=== PATIENT | female | born 1940 | race Caucasian/White ===

== ENCOUNTER → 2016-06-25 | Outpatient (CLI) | payer MEDICARE, OTHER ==
--- NOTE | 2016-06-25 14:58 | MRI ---
EXAM DESCRIPTION: Cervical Spine CLINICAL HISTORY: CERVICAL RADICULOPATHY COMPARISON: X-rays June 19, 2016 TECHNIQUE: Multiplanar MRI of the cervical spine was performed without contrast. FINDINGS: Cervical vertebral bodies show normal height without compression deformity. There is 3 mm anterior displacement of C4 on C5. Mild curvature of the lower cervical to upper thoracic spine with convexity towards the left is seen. Craniocervical junction is maintained. Patchy areas of increased T2 signal in the rainer could represent old small vessel ischemic type changes. No abnormal signal is seen in the spinal cord. C1-2 and craniocervical junction Small amount of fluid between the anterior arch of C1 and the odontoid is noted. C2-3 Mild bilateral facet hypertrophic and degenerative changes are seen. There is mild bilateral foraminal encroachment. C3-4 Disc desiccation and mild posterior disc space narrowing is seen with mild posterior ligamentum flavum thickening. There is mild spinal canal stenosis. Thecal sac measures 7 mm AP centrally. Moderate left and mild right facet hypertrophic and degenerative changes are seen with mild to moderate bilateral foraminal encroachment. There is a posterior facet joint synovial cyst measuring 6 x 11 mm C4-5 Mild disc desiccation without loss of disc space height. Moderate left and mild right facet hypertrophic and degenerative changes are seen. Mild spinal canal stenosis is seen. There is mild to moderate bilateral foraminal encroachment. C5-6 Disc desiccation and moderate diffuse disc space narrowing is seen. Mild to millimeter ventral ridging disc osteophyte complex and posterior ligamentum flavum thickening contributes to moderate spinal canal stenosis. The thecal sac measures 6 mm AP centrally. Left uncovertebral joint hypertrophy contributes to moderate left foraminal encroachment. C6-7 Disc desiccation and mild loss of disc space height. There is posterior ligamentum flavum thickening contributing to mild spinal canal stenosis. The thecal sac measures 8 mm AP centrally. No significant foraminal encroachment. There is mild bilateral facet hypertrophy. C7-T1 No significant findings. IMPRESSION: Multilevel mild to moderate disc degenerative changes and facet arthropathy of the cervical spine is seen. Multifactorial moderate spinal canal stenosis seen at C5-6 with mild spinal canal stenosis C3-C5 and C6-7. Multilevel foraminal encroachment is seen as described level by level above most significant on the left at C5-6. Mild degenerative anterolisthesis of C4 on C5 is seen. Electronically signed by: Nils Jerez MD 06/25/2016 2:57 PM CDT
--- NOTE | 2016-06-25 15:58 | MRI ---
EXAM DESCRIPTION: Brain w/wo Contrast CLINICAL HISTORY: DIZZINESS COMPARISON: December 21, 2011 TECHNIQUE: Multiplanar, multi sequence MR images of the head are obtained with and without IV gadolinium contrast using standard imaging protocol. FINDINGS: The midline structures are not displaced. Sulci are age appropriate. The lateral, third, and fourth ventricles are normal in size, shape, and anatomic positioning. Normal arguello-white differentiation is seen. Normal flow voids are seen in the major intracranial vessels including the dural venous sinuses. There is no evidence of mass, mass effect, hydrocephalus, or acute intracranial hemorrhage. No abnormal extra-axial fluid collections are seen. No abnormal areas of enhancement are seen. Moderate scattered foci of increased FLAIR/T2 signal are seen in the periventricular white matter, white matter and centrum semiovale, and the rainer. This has an overall similar appearance to previous exam. Gradient echo images show no abnormal signal. The pituitary is unremarkable. Visualized paranasal sinuses are unremarkable. The visualized orbits and mastoid air cells are unremarkable. IMPRESSION: Age-appropriate atrophy with mild old small vessel ischemic type changes are stable from previous exam. No MRI evidence of acute intracranial ischemia, mass, or abnormal enhancement. Electronically signed by: Nils Jerez MD 06/25/2016 3:56 PM CDT
== END | disposition home or self-care (01) ==
LOC: MRI 09:07
PROVIDERS: ATTEND Family Medicine
DX: H81.10 Benign paroxysmal vertigo, unspecified ear (principal); M54.12 Radiculopathy, cervical region

== ENCOUNTER → 2016-07-04 | Outpatient (CLI) | payer MEDICARE, OTHER | END | disposition home or self-care (01) | LOC: GMA 14:06 | PROVIDERS: ATTEND Nurse Practitioner Family | DX: N30.00 Acute cystitis without hematuria (principal) ==

== ENCOUNTER → 2016-07-18 | Outpatient (CLI) | payer MEDICARE, OTHER | END | disposition home or self-care (01) | LOC: GMAM 14:16 | PROVIDERS: ATTEND Family Medicine | DX: R53.83 Other fatigue (principal); E55.9 Vitamin D deficiency, unspecified ==

== ENCOUNTER → 2016-08-15 | Outpatient (CLI) | payer MEDICARE, OTHER | END | disposition home or self-care (01) | LOC: GMA 14:20 | PROVIDERS: ATTEND Nurse Practitioner Family | DX: N30.00 Acute cystitis without hematuria (principal) ==

== ENCOUNTER → 2017-01-04 | Outpatient (CLI) | payer MEDICARE, OTHER | END | disposition home or self-care (01) | LOC: GMAM 10:17 | PROVIDERS: ATTEND Family Medicine | DX: E55.9 Vitamin D deficiency, unspecified (principal) ==

== ENCOUNTER → 2017-01-15 | Outpatient (CLI) | payer MEDICARE, OTHER ==
--- NOTE | 2017-01-15 11:14 | CT ---
EXAM DESCRIPTION: Chest w/Contrast (accession [id number]), Chest w/o Contrast (accession [id number]) CLINICAL HISTORY: ABNORMAL CXR FINDINGS COMPARISON: Chest x-ray January 04, 2017 TECHNIQUE: Pre and postcontrast CT images of the chest are obtained. This exam was performed according to our departmental dose-optimization program, which includes automated exposure control, adjustment of the mA and/or kV according to patient size and/or use of iterative reconstruction technique . FINDINGS: The heart is mildly enlarged. Moderate coronary artery calcifications are seen. There is borderline aneurysmal dilatation of the ascending thoracic aorta measuring 4 cm without evidence of dissection. Scattered calcified and noncalcified plaque throughout the thoracic aorta and great vessels are seen. No pathologic lymphadenopathy. No pleural or pericardial effusion. Several fluid attenuation cysts are seen in the liver including 1.8 cm the left lobe superiorly. There is a 8 mm area of enhancement in the mid right lobe of the liver adjacent to an ill-defined area of decreased attenuation measuring 12 mm. There is probable cortical thinning of the kidneys partly visualized. Lungs are mildly hyperinflated. There are mild centrilobular emphysematous changes seen. Somewhat cavitary appearing nodule with thick wilkinson and central airspace attenuation measures 1.6 x 1.2 cm in the anterior aspect of the mid to upper aspect of the right lower lobe. There is nodular interstitial thickening extending to the anterior oblique fissure. Inferior to this are noncalcified pulmonary nodules measuring up to 11 and 6 mm greatest diameter. These nodules do not show obvious enhancement on postcontrast images. No other pulmonary nodules are seen. Osseous structures show no aggressive bony lesions. Mild disc degenerative changes of the spine are seen. IMPRESSION: In the area of abnormality seen on chest x-ray, there are areas of interstitial thickening and pulmonary nodules in the anterior mid aspect of the right lower lobe extending to the oblique fissure. One of these areas of nodularity suggest some central cavitation which could indicate infectious or inflammatory etiology versus neoplastic process. The more inferior noncavitary nodules measure up to 11 mm greatest diameter. Consider further evaluation with PET/CT imaging or tissue sampling with biopsy of these lesions. Mild centrilobular emphysematous changes to the lungs are seen. No pathologic lymphadenopathy. Mild aneurysmal dilatation of the ascending thoracic aorta. Recommend yearly follow-up imaging. Several hepatic cysts are identified. There is a partly visualized area of enhancement in the mid to inferior right lobe of the liver adjacent to the area of low attenuation. This could represent early phase hemangioma versus other enhancing hepatic lesion. Consider further evaluation with pre and postcontrast CT of the abdomen using hemangioma imaging protocol. Electronically signed by: Nils Jerez MD 01/15/2017 11:12 AM [facility]
== END | disposition home or self-care (01) ==
LOC: CT 09:44
PROVIDERS: ATTEND Family Medicine
DX: N30.00 Acute cystitis without hematuria (principal); I25.10 Atherosclerotic heart disease of native coronary artery without angina pectoris; I51.7 Cardiomegaly

== ENCOUNTER → 2017-02-04 | Outpatient (CLI) | payer MEDICARE, OTHER ==
--- NOTE | 2017-02-05 08:00 | US ---
EXAM DESCRIPTION: Liver CLINICAL HISTORY: 76 years, Female, LIVER MASS COMPARISON: CT scan chest January 15. FINDINGS: Gallbladder does not demonstrate stones or wall thickening. Common bile duct 3 mm. Intrahepatic ducts not dilated. Liver 14.6 cm. Homogeneous normal echotexture. Multiple benign-appearing cysts bilaterally. On the left lobe simple cyst 1.4 x 1.4 x 7.3 cm 1.315 x 1.1 cm. This also probable benign cyst measuring 1.5 x 1.8 x 1.0 cm. This has some central septation Right lobe simple cyst 2.8 x 2.8 x 2.4 cm. A smooth echogenic mass, anterior right lobe, without vascularity measuring 1.2 x 1.1 x 1.2 cm could be the indeterminate lesion described on recent CT scan. The sonographic features are suggestive but not conclusive for diagnosis of benign trauma. Right kidney 7.7 cm without hydronephrosis. IMPRESSION: Numerous almost certainly benign hepatic cysts present similar to suggested by recent CT. Indeterminate hepatic mass on the CT may correspond to a small hyperechoic right hepatic mass which has sonographic features very suggestive of hemangioma. More accurate characterization can be obtained with CT scanning. Alternatively short-term follow-ups sonogram can also be considered to confirm stability Electronically signed by: Brennon Clay MD 02/05/2017 7:59 AM [facility]
== END | disposition home or self-care (01) ==
LOC: US 11:20
PROVIDERS: ATTEND Internal Medicine Pulmonary Disease
DX: D37.6 Neoplasm of uncertain behavior of liver, gallbladder and bile ducts (principal); R91.1 Solitary pulmonary nodule; R91.8 Other nonspecific abnormal finding of lung field; J98.4 Other disorders of lung; Z72.0 Tobacco use; J44.9 Chronic obstructive pulmonary disease, unspecified

== ENCOUNTER → 2017-02-12 | Outpatient (CLI) | payer MEDICARE, OTHER ==
--- NOTE | 2017-02-12 21:14 | CT ---
EXAM DESCRIPTION: Chest w/o Contrast CT. CLINICAL HISTORY: NODULE COMPARISON: CT scan of the chest without and with IV contrast 01/15/2017. TECHNIQUE: Spiral-axial scans at 5.0 mm intervals through the lungs and thorax without IV contrast. 2.5 mm lung algorithm axial reconstructions. Coronal and sagittal 2.0 Mm reconstructions. Total Exam DLP: 223.32 mGy-cm. This exam was performed according to our departmental dose-optimization program which includes automated exposure control, adjustment of the mA and/or kV according to patient size and/or use of iterative reconstruction technique; to reduce radiation dose to as low as reasonably achievable (ALARA). FINDINGS: Again noted is a region of architectural distortion with the elongated nodules scarring in the dilated airspaces in the anterior lateral aspect of the right lower lobe abutting the inferior right major fissure (series 4, images 77-89).. There may also be chronically dilated airways associated with this tissue. Again noted on the anterior inferior aspect of this tissue is a slightly lobulated nodule measuring 6 mm (image 83.) Posteriorly at a slightly higher level is an 11 mm nodule 2 cm from the pleura. Bilateral small dilated airspaces in the lung parenchyma more prevalent upper lung kingsley than lower. Pleural thickening in the base of the lingula and the right middle lobe. No abnormal nodules elsewhere in the lungs bilaterally. No pleural effusion or pneumothorax. Atherosclerotic calcifications in the proximal brachiocephalic vessels and thoracic aorta. Coronary artery atherosclerotic calcifications and stents. No dominant soft tissue masses or lymph nodes in the base of the neck, axillary regions, mediastinum or hilum. Evaluation is limited due to lack of IV contrast. Multiple cysts in the left lobe of the liver. Normal density of the bilateral adrenal glands and included spleen. No subdiaphragmatic fluid or free air in the included peritoneal space. Spondylosis in the included thoracic spine. No bone destruction. IMPRESSION: 1. Stable complex area of scarring, dilated airspaces, dilated branch airways and possibly small cavities in the anterior right lower lobe, since CT scan in December. A 6 mm and 11 mm nodule are abutting this tissue and are also unchanged. Consider CT scan in 3 month, PET/CT scan, or tissue sampling. Stable emphysematous changes in the remainder of the lung. Electronically signed by: Nikhil Banegas MD 02/12/2017 9:13 PM [facility] Workstation: [id number]
== END | disposition home or self-care (01) ==
LOC: CT 09:14
PROVIDERS: ATTEND Family Medicine
DX: D72.829 Elevated white blood cell count, unspecified (principal)

== ENCOUNTER → 2017-06-26 | Outpatient (CLI) | payer MEDICARE, OTHER ==
--- NOTE | 2017-06-27 11:52 | CT ---
EXAM DESCRIPTION: Chest w/o Contrast : Computed Tomography. CLINICAL HISTORY: PULMONARY NODULE COMPARISON: Chest CT scan without contrast 02/12/2017. TECHNIQUE: Spiral-axial scans at 5.0 mm intervals through the lungs and thorax without IV contrast. 2.5 mm lung algorithm axial reconstructions. Coronal and sagittal 2.0 Mm reconstructions. No adverse reactions. Total Exam DLP: 238.96 mGy-cm. This exam was performed according to our departmental dose-optimization program which includes automated exposure control, adjustment of the mA and/or kV according to patient size and/or use of iterative reconstruction technique; to reduce radiation dose to as low as reasonably achievable (ALARA). FINDINGS: The nodules apical pleural thickening bilaterally. Small bilateral emphysematous blebs in the parenchyma again noted more numerous in the upper lung kingsley compared to the lower lung kingsley. Linear radiodense material is associated with this density tissue coursing from the lateral pleura abutting the right middle lobe in a superior direction and following the major fissure into its lateral insertion abutting the superior segment right lower lobe. No new nodules or densities in the left lung. No new infiltrates bilaterally. No pleural effusion or pneumothorax. Evaluation of the soft tissues limited due to lack of IV contrast. No new soft tissue masses in the bilateral elsa mediastinum or axilla. Thyroid gland unremarkable. Stable atherosclerotic calcifications in the great vessels and coronary artery calcifications and/or stents. Stable cystlike masses in the included lateral segment of the left upper lobe with no free fluid in the included subcutaneous diaphragmatic peritoneal space. Abutting the inferior lateral right major fissure on the prior study are less evident with larger more inferior scar type triangular configuration of density in the anterior lateral right lower lobe abutting the fissure. Linear density interpreted to represent scarring also extends more superiorly along the lateral aspect of the fissure compared to the prior study. Stable appearance of the spine and other osseous structures since the prior study. IMPRESSION: 1. Nodules seen on the prior study in the right lower lobe abutting the lateral right major fissure are no longer present, but increased parenchymal thickening most likely scarring is abutting the major fissure and associated with elongated radiodense material which is interpreted to represent calcification. Please correlate with clinical findings. No new nodules or masses. Consider follow-up chest CT scan in 6 - 12 month interval to document stability. Stable centrilobular emphysematous changes in the lungs bilaterally. 2. Stable cysts in the lateral segment left hepatic lobe. Electronically signed by: Nikhil Banegas MD 06/27/2017 11:51 AM CDT
== END ==
LOC: CT 11:14
PROVIDERS: ATTEND Thoracic Surgery (Cardiothoracic Vascular Surgery)
DX: R91.1 Solitary pulmonary nodule (principal); Q44.6 Cystic disease of liver

== ENCOUNTER → 2017-07-05 | Outpatient (CLI) | payer MEDICARE, OTHER | LOC: GMAM 13:52 | PROVIDERS: ATTEND Family Medicine | DX: E55.9 Vitamin D deficiency, unspecified (principal) ==

== ENCOUNTER → 2017-11-06 | Outpatient (CLI) | payer MEDICARE, OTHER ==
--- NOTE | 2017-11-06 10:32 | CT ---
EXAM DESCRIPTION: Chest w/o Contrast CLINICAL HISTORY: LUNG CANCER COMPARISON: June 26, 2017 TECHNIQUE: Chest CT was performed without IV contrast. This exam was performed according to our departmental dose-optimization program, which includes automated exposure control, adjustment of the mA and/or kV according to patient size and/or use of iterative reconstruction technique. FINDINGS: The thyroid and thoracic inlet are unremarkable. Mural calcifications in the thoracic aorta with upper normal caliber of the ascending thoracic aorta measuring up to 3.7 cm diameter, stable. Coronary artery calcifications are noted. The main pulmonary artery is not dilated. Limited sensitivity for detection of adenopathy due to lack of IV contrast. Nonenlarged mediastinal lymph nodes are noted, but no mediastinal or hilar adenopathy is seen. No pleural or pericardial effusion. There is some intermediate density material in the left mainstem bronchus which probably represents bronchial secretions. A small nodular lesion adjacent to the anterior tracheal wall just proximal to the shaniqua probably represents additional tracheal secretions. Emphysematous changes are noted. Platelike atelectasis or scarring is noted in the right lower lobe, stable. No airspace consolidation, lung mass or suspicious lung nodule is identified. There are several small round low-density lesions in the left hepatic lobe which are stable from the prior exam and likely represent cysts. There are additional rounded low-density lesions in the right hepatic lobe, the largest measuring at least 3.3 cm diameter but only partially included on the exam, which have increased in size from the prior exam and are concerning for metastatic disease. A 1.47 m soft tissue density nodule just deep to the skin surface in the anterior abdominal wall overlying the right upper quadrant is stable from the prior exam. No lytic or sclerotic bone lesion is identified. IMPRESSION: Postoperative changes in the right lung, but no evidence of recurrent intrathoracic neoplasm. Several round low density lesions in the right hepatic lobe, increased in size from Jun, 2017 and highly suspicious for metastatic disease. Additional low-density lesions in the left hepatic lobe are stable and likely represent cysts. 1.5 cm lesion in the subcutaneous soft tissues in the anterior abdominal wall as detailed above, stable. This is nonspecific, please correlate with physical exam. Electronically signed by: Dexter Garcia MD 11/06/2017 10:31 AM CDT
== END ==
LOC: CT 09:09
PROVIDERS: ATTEND Family Medicine
DX: C34.90 Malignant neoplasm of unspecified part of unspecified bronchus or lung (principal); K76.9 Liver disease, unspecified; Z98.890 Other specified postprocedural states

== ENCOUNTER → 2017-11-13 | Outpatient (CLI) | payer MEDICARE, OTHER | LOC: GMAM 14:24 | PROVIDERS: ATTEND Family Medicine | DX: R30.0 Dysuria (principal) ==

== ENCOUNTER → 2017-11-14 | Outpatient (CLI) | payer MEDICARE, OTHER ==
--- NOTE | 2017-11-14 17:34 | US ---
EXAM DESCRIPTION: Liver: ULTRASOUND. CLINICAL HISTORY: ABNORMAL FINDING ON RAD AND OTHER EXAMS OF BILIARY TRACT. Masses in the liver. COMPARISON: CT scan of the chest without contrast 11/06/2017. TECHNIQUE: Transabdominal scannin-dimensional and Doppler modes. FINDINGS: Gallbladder: normal size, shape, echogenicity; no intraluminal stones or sludge. No fluid around the gallbladder. No wall thickening. 1.6 mm. Non-tender with transducer pressure. Common bile duct: caliber 2.8 mm within normal limits. Liver: normal echogenicity; multiple complex partially cystic lesions are seen in the liver. One subcapsular lesion in the left lobe measures 2.1 x 1.4 cm. Larger mostly cystic lesion with peripheral nodules measures 3.6 x 3.4 cm. Also smaller hypoechoic nodules in both lobes. Contour liver capsule smooth where seen. No fluid around the liver. Intrahepatic biliary ducts normal caliber. Doppler hepatopedal flow portal vein. Caliber 9.6 mm. Long axis right lobe 15.4 cm. Pancreas: normal size and echogenicity. Duct not seen. Right kidney: long axis measures 9.1 cm. Increased cortical Echogenicity. Minimal cortical thinning. 12 mm. No hydronephrosis IMPRESSION: 1. Partially cystic lesions and hypoechoic lesions in the liver both lobes could represent metastatic disease. Normal vascularity and normal ducts in the liver. No ascites. Consider follow-up triple phase noncontrast and contrast hepatic CT scan and/or MRI scan of the liver without and with gadolinium IV contrast. 2. Normal ultrasound of the gallbladder and normal caliber of the common bile duct. Pancreas is unremarkable. 3. Age-related changes in the right kidney with no hydronephrosis. Electronically signed by: Nikhil Banegas MD 11/14/2017 5:32 PM CDT
== END ==
LOC: US 09:30
PROVIDERS: ATTEND Family Medicine
DX: R93.2 Abnormal findings on diagnostic imaging of liver and biliary tract (principal)

== ENCOUNTER → 2018-02-11 | Outpatient (CLI) | payer MEDICARE, OTHER ==
--- NOTE | 2018-02-11 14:16 | CT ---
EXAM DESCRIPTION: Chest w/o Contrast : Computed Tomography. CLINICAL HISTORY: 77 years Female LUNG NODULE. Lung cancer. COMPARISON: CT scan chest without IV contrast 11/06/2017. TECHNIQUE: Spiral-axial scans at 5 x 5 mm intervals through the lungs and thorax without IV contrast. 2.5 x 5 mm lung algorithm axial reconstructions. 2.0 x 2.0 Mm reconstructions. Total Exam DLP: 206.64 mGy-cm. This exam was performed according to our departmental dose-optimization program which includes automated exposure control, adjustment of the mA and/or kV according to patient size and/or use of iterative reconstruction technique; to reduce radiation dose to as low as reasonably achievable (ALARA). Nodule measurements under 10 mm are given as mean value of 3 axes diameters. FINDINGS: Lungs and large airways: A new density with central air and partially groundglass and partially solid central components is seen in the central right apex with extension to anterior lateral and posterior pleura on lung axial series 4, image 17-21. Minimal thickening of the lateral right horizontal and right major fissure laterally is again noted. Associated with parenchymal scarring laterally and in the lateral right lower lobe posterior recess. No change in appearance. Stable bilateral parenchymal blebs more numerous in the upper lung kingsley. Pleural parenchymal scarring in the inferior lingula. 6 mm groundglass nodule superior segment left lower lobe new since the prior study on image 66. 3 mm partially solid nodule left upper lobe laterally on image 50 not well seen on the prior study.. Pleural spaces: No effusion bilaterally. Multiple regions of focal thickening stable. No pleural effusion bilaterally or pneumothorax. Mediastinum and [place]: Evaluation limited due to lack of IV contrast multiple small lymph nodes are stable. No new soft tissue masses. Great vessels and Heart: Evaluation limited due to lack of IV contrast. Atherosclerotic calcification aortic arch and descending thoracic aorta. Coronary artery calcifications. Soft tissues of neck base, axillae, and chest wall: Evaluation limited due to lack of IV contrast.. Subcutaneous nodule with acute angles to the scan overlying anterior right liver at the level of the lung base. Stable. Upper abdomen: No free air or fluid in the included peritoneal space. Included adrenal glands and spleen normal size and density. Multiple hepatic lesions, predominantly in the left lobe. Moderate atherosclerotic calcification of the abdominal aorta. Osseous structures: Minimal spondylosis in the thoracic spine. Arthrosis bilateral sternoclavicular joints and left glenohumeral joint. Minimal scoliosis upper thoracic spine. IMPRESSION: 1. New density containing air, groundglass, and partially solid with extensions to the pleura in the right apex. Solid component is approximately 5 mm. Associated with pleural thickening and other pleural changes in the right upper lobe. Scarring changes in the superior segment right lower lobe and the right middle lobe medial segment are stable. New 6 mm groundglass nodule superior segment left upper lobe. 3 mm partially solid nodule with minimal spiculation in the left upper lobe new since the prior study. Recommend six-month follow-up according to [facility] Best Practice recommendations and 2017 Fleischner Society guidelines for imaging follow-up of multiple nodules. Please see below*. 2. Multifocal hepatic lesions, some soft tissue density in some cystic/fluid density, with no significant change since the prior study. * 2017 Fleischner Society Recommendations for Multiple Solid Lung Nodules Follow-Up base on size (average of long- and short-axis diameters). Use most suspicious nodule for followup. Nodule Size <6 mm Low-Risk Patient: No routine follow-up Nodule Size <6 mm High-Risk Patient: Optional CT at 12 months Nodule Size 6-8 mm Low-Risk Patient: CT at 3-[address] at 18-24 months Nodule Size 6-8 mm High-Risk Patient: CT at 3-6 months then at 18-24 months. Electronically signed by: Nikhil Banegas MD 02/11/2018 2:15 PM [facility]
== END ==
LOC: CT 10:00
PROVIDERS: ATTEND Family Medicine
DX: C34.90 Malignant neoplasm of unspecified part of unspecified bronchus or lung (principal); R91.1 Solitary pulmonary nodule; E55.9 Vitamin D deficiency, unspecified; K76.9 Liver disease, unspecified

== ENCOUNTER → 2018-07-28 | Outpatient (CLI) | payer MEDICARE, OTHER ==
--- NOTE | 2018-07-29 09:48 | CT ---
EXAM DESCRIPTION: Chest w/o Contrast : Computed Tomography. CLINICAL HISTORY: 78 years Female LUNG CANCER COMPARISON: CT scan of the chest without contrast 11/12/2017. TECHNIQUE: Spiral-axial scans at 5 mm intervals through the lungs and thorax without IV contrast. 2.5 x 5 mm lung algorithm axial reconstructions. Coronal and sagittal 2.0 Mm reconstructions. Total Exam DLP: 248.93 mGy-cm. This exam was performed according to our departmental dose-optimization program which includes automated exposure control, adjustment of the mA and/or kV according to patient size and/or use of iterative reconstruction technique; to reduce radiation dose to as low as reasonably achievable (ALARA). Nodule measurements under 10 mm are given as mean value of 3 axes diameters. FINDINGS: Lungs and large airways: The groundglass nodule seen in the superior and posterior left lower lobe on the prior study is no longer visualized. Spiculated density in the right apex on the prior study is less solid with more groundglass and air density on the current study. Posterior thickening of the pleura at this level and contralateral left lung is stable subpleural density in the superior lateral lingula seen on the prior study is no longer present. Pleural and parenchymal scarring associated with the lateral right major fissure and lateral horizontal fissure is unchanged. Bilateral parenchymal blebs mostly in the upper lung kings[place] in a centrilobular distribution stable. Stable parenchymal pleural scarring in the inferior middle lobe and in the right lower lobe. No new nodules or masses. No focal infiltrate. Pleural spaces: Bilateral scattered focal thickening and scarring is noted. No effusion or pneumothorax. Mediastinum and [place]: Evaluation limited due to lack of IV contrast. No enlarged nodes are soft tissue masses. Great vessels and Heart: Evaluation limited due to lack of IV contrast. Coronary artery calcifications and stents, atherosclerotic calcifications in the aorta and previous cephalic vessels also again seen. Soft tissues of neck base, axillae, and chest wall: Evaluation limited due to lack of IV contrast.. No enlarged lymph nodes or soft tissue masses. Thyroid unremarkable. Upper abdomen: Included peritoneal space is negative. Normal density and size of included spleen and adrenal glands and other organs. Stable cysts in the lateral segment left hepatic lobe. Inferior right hepatic cyst was not imaged on the prior study. No free fluid or free air.. Osseous structures: Anterior endplate ridging at some levels of the thoracic spine with some with some endplates demonstrating Schmorl's nodes. Mild levoscoliosis. Arthrosis bilateral sternoclavicular joints. No lytic or blastic lesions. IMPRESSION: 1. Bilateral pleural-parenchymal scarring in the lungs particularly in the lateral aspect of the superior segment of the right lower lobe and inferior right middle lobe. This may have been location of previous malignancy. Nodular densities seen on the prior study are no longer visualized. No new nodules or masses. No focal infiltrate. 2. Consider optional follow-up chest CT scan in 12 month interval, according to 2017 Fleischner Society guidelines for imaging follow-up of nodules. Electronically signed by: Nikhil Banegas MD 07/29/2018 9:45 AM CDT
== END ==
LOC: CT 13:30
PROVIDERS: ATTEND Thoracic Surgery (Cardiothoracic Vascular Surgery)
DX: C34.90 Malignant neoplasm of unspecified part of unspecified bronchus or lung (principal); R91.8 Other nonspecific abnormal finding of lung field

== ENCOUNTER → 2019-02-23 | Outpatient (CLI) | payer MEDICARE, OTHER ==
--- NOTE | 2019-02-23 16:30 | CT ---
EXAM DESCRIPTION: Chest w/o Contrast CLINICAL HISTORY: 78 years Female, LUNG CANCER FOLLOW UP COMPARISON: CT chest dated July 28, 2018 and February 11, 2018. TECHNIQUE: Contiguous thin section axial images were obtained from the supraclavicular region to below the diaphragm level without the use of intravenous contrast. Sagittal and coronal reconstructions were reviewed. This exam was performed according to our departmental dose-optimization program, which includes automated exposure control, adjustment of the mA and/or kV according to patient size and/or use of iterative reconstruction technique. FINDINGS: The visualized thyroid gland appears grossly unremarkable. No enlarged axillary, supraclavicular, mediastinal or hilar lymphadenopathy. The previously noted mildly prominent mediastinal lymph nodes appears stable from prior exam, the reference vascular node measuring up to 5 mm. The heart size appears within normal limits.Evaluation of the great vessels is limited secondary to lack of intravenous contrast. Moderate atherosclerotic calcific lesions of the aortic arch and moderate coronary artery calcifications noted. No pericardial effusion. The tracheobronchial tree is patent. Review of the lung windows demonstrate no acute consolidation or pleural effusion. The previously noted mildly spiculated groundglass density in the right apex appears stable with no significant interval change. The posterior thickening of the pleura at this level and contralateral left lung also appear stable. Again noted is stable appearing pleural and parenchymal scarring associated with the lateral right major fissure and lateral horizontal fissure with no significant interval change. No other new suspicious nodules or abnormal mass lesions identified on the right. No suspicious nodules or abnormal mass lesions in the left. Mild bilateral emphysematous changes are again noted. The esophagus appears grossly normal throughout its length. The visualized upper abdomen demonstrates stable appearing low-density lesions in the visualized portions of the liver, the largest lesion measuring up to 3.9 cm and appears stable from prior exam likely represents simple cyst. Review of the bone windows demonstrate no acute osseous abnormality. No evidence of lytic or sclerotic bony lesions. IMPRESSION: 1. No significant interval change since prior chest CT dated July 28, 2018. 2. Stable appearing pleural parenchymal scarring in the lateral aspect of the superior segment of right lower lobe and inferior right middle lobe with no significant interval change in size or appearance in comparison to prior chest CT, could represent location of previous malignancy. No new suspicious nodules or abnormal mass lesions identified in the right lung. Continued interval follow-up is recommended. 3. No suspicious nodules or abnormal mass lesions noted on the left. 4. No acute consolidation or pleural effusion. Electronically signed by: Xu Whiteside MD 02/23/2019 4:29 PM [facility]
== END ==
LOC: CT 13:00
PROVIDERS: ATTEND Thoracic Surgery (Cardiothoracic Vascular Surgery)
DX: C34.90 Malignant neoplasm of unspecified part of unspecified bronchus or lung (principal)

== ENCOUNTER → 2019-03-16 | Outpatient (CLI) | payer MEDICARE, OTHER | LOC: GMAM 10:40 | PROVIDERS: ATTEND Family Medicine | DX: E11.9 Type 2 diabetes mellitus without complications (principal); E55.9 Vitamin D deficiency, unspecified; J44.9 Chronic obstructive pulmonary disease, unspecified; I10 Essential (primary) hypertension ==

== ENCOUNTER → 2019-08-13 | Outpatient (CLI) | payer MEDICARE, OTHER ==
--- NOTE | 2019-08-13 15:55 | RAD ---
EXAM DESCRIPTION: Shoulder,Left 2 or More Views CLINICAL HISTORY: SHOULDER PAIN LEFT COMPARISON: None. TECHNIQUE: 3 views left FINDINGS: Degenerative changes are observed in the acromio clavicular joint. The glenohumeral joint is unremarkable. No evidence of a fracture or dislocation is seen. 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 The shoulders otherwise unremarkable. Electronically signed by: Maurizio Barron MD 08/13/2019 3:53 PM CDT
== END ==
LOC: RAD 09:50
PROVIDERS: ATTEND Orthopaedic Surgery
DX: M19.012 Primary osteoarthritis, left shoulder (principal)

== ENCOUNTER → 2019-11-30 | Outpatient (CLI) | payer MEDICARE, OTHER | LOC: GMAM 17:01 | PROVIDERS: ATTEND Family Medicine | DX: R30.0 Dysuria (principal) ==

== ENCOUNTER → 2020-03-17 | Outpatient (CLI) | payer MEDICARE, OTHER | LOC: GMAM 14:17 | PROVIDERS: ATTEND Family Medicine | DX: E55.9 Vitamin D deficiency, unspecified (principal); R74.8 Abnormal levels of other serum enzymes; E11.9 Type 2 diabetes mellitus without complications; I10 Essential (primary) hypertension; E78.2 Mixed hyperlipidemia ==

== ENCOUNTER → 2020-03-22 | Outpatient (CLI) | payer MEDICARE, OTHER ==
--- NOTE | 2020-03-23 20:49 | CT ---
EXAM DESCRIPTION: Chest w/Contrast : Computed Tomography. CLINICAL HISTORY: 79 years Female SOLITARY PULMONARY NODULE. Decreased EGFR. COMPARISON: CT scan of the lungs and thorax without contrast January 2019. TECHNIQUE: Spiral-axial scans at 5.0 mm intervals through the lungs and thorax with half dose nonionic IV contrast. 2.5 x 5 mm lung algorithm axial reconstructions. Coronal and sagittal 2.0 Mm reconstructions. No adverse reactions. Total Exam DLP: 246 mGy-cm. This exam was performed according to our departmental dose-optimization program which includes automated exposure control, adjustment of the mA and/or kV according to patient size and/or use of iterative reconstruction technique; to reduce radiation dose to as low as reasonably achievable (ALARA). Nodule measurements under 10 mm are given as mean value of 3 axes diameters. FINDINGS: Lungs and large airways: In the superior segment of the right lower lobe just posterior to the superior lateral aspect of the right major fissure, a new or enlarging nodule is now seen measuring approximately 7.2 mm in the axial plane and 5 mm in the craniocaudal axis. Best seen on axial series 4, image 70. Not associated with calcifications. Scarring is noted extending to the pleura and the major fissure on this study and the previous study. A second area of nodular density associated with the insertion of the major fissure on the lateral pleura is stable (image 4/57.) Minimal scarring in the right apex. Small bilateral blebs predominantly upper lung [place] in a centrilobular distribution. Pleural-parenchymal scarring in the inferior middle lobe and lingula. Pleural spaces: Bilateral focal and confluent regions of thickening particularly bilateral apices and the bases. No acute process or calcifications. Mediastinum and [place]: Small lymph nodes are stable. No new dominant soft tissue mass. Great vessels and Heart: Atherosclerotic changes again seen in several brachiocephalic vessels, aortic arch and descending thoracic aorta with ectasia in the ascending aortic arch. Coronary artery calcifications. No significant change from the prior study. Soft tissues of neck base, axillae, and chest wall: Normal size stable axillary and subclavian lymph nodes. No abnormal enhancement. Upper abdomen: Stomach distended. Included liver with cystlike structure is predominantly in the left lobe lateral segment. Included renal cortex is thin. Prominent left adrenal gland stable with fatty density. No free air or free fluid. Atherosclerotic calcifications abdominal aorta. Osseous structures: Degenerative changes in the shoulders, clavicles, and cisternal joints. Minimal spondylosis in the mid and upper thoracic spine with no lytic or blastic lesions. IMPRESSION: 1. New or enlarging lung soft tissue mass (compared to January 2019) without prominent spiculation in the superior segment of the lateral aspect right lower lobe abutting the lateral superior right major fissure. Mean dimension in the axial transverse plane is 7.2 mm. No definite calcifications. [facility] Best Practice recommendations: 6-8 mm right solid pulmonary nodule. Recommend a non-contrast Chest CT at 6-12 months. If patient is high risk for malignancy, recommend an additional non-contrast Chest CT at 18-24 months; if patient is low risk for malignancy a non-contrast Chest CT at 18-24 months is optional. These guidelines do not apply to immunocompromised patients and patients with cancer. Follow up in patients with significant comorbidities as clinically warranted. For lung cancer screening, adhere to Lung-RADS guidelines. Reference: Radiology. 2017; 284(1):228-43. Electronically signed by: Nikhil Banegas MD 03/23/2020 8:47 PM [facility]
== END ==
LOC: CT 09:42
PROVIDERS: ATTEND Family Medicine
DX: R91.1 Solitary pulmonary nodule (principal)